=== PATIENT | female | born 1935 | race Caucasian/White ===

== ENCOUNTER 2016-12-04 20:04 | Observation (INO) ==
[2016-12-04] MEDS ORDERED: 0.9 % Sodium Chloride 1,000 ML IVC ONE ×2 (20:34→22:03)
--- NOTE | 2016-12-04 20:34 | Emergency Department Note ---
Disposition Clinical Impression: Type 2 diabetes mellitus with hyperglycemia, Neurologic abnormality, Sinusitis , Cerebrovascular disease, Dementia, Weakness, Frail elderly Disposition: Admitted As Inpatient Referrals: NO,PCP [Primary Care Provider] - Forms: Work/School Release, ED Satisfaction Letter General Adult HPI - General Chief complaint: ED General Medical Stated complaint: "Sent From for Hyperglycemia w/DM 2" Time Seen by Provider: 12/04/16 20:33 Source: patient Limitations: no limitations - History of Present Illness HPI Narrative: 81-year-old female diabetic brought in by relatives for concern regarding urinary symptoms, and uncontrolled right arm movements. The patient went to urgent care, she was sent to the ED for evaluation. The patient has had uncontrolled arm movements on the right for several days. Her just , she is feeling somewhat depressed. There is no history of headache or neck pain or weakness or numbness of the arms or legs no slurred speech or facial droop. The patient is known to be diabetic, her glucoses reportedly elevated. The patient describes burning and frequency with urination and low grade back aching bilaterally. There is no history of fall abdominal pain chest pain or shortness of breath no fevers. No difficulty moving the arms or legs independently. There is no history of kidney stones or bloody urine. Pain Scale: 0 - Related Data Home Medications Medication Instructions Recorded Confirmed Insulin Glargine,Hum.rec.anlog 25 unit SQ HS 12/04/16 12/04/16 [Lantus Solostar] Insulin LISPRO [Humalog Kwikpen] 0 unit SQ TIDWM 12/04/16 12/04/16 Allergies Allergy/AdvReac Type Severity Reaction Status Date / Time Penicillins [PCN] Allergy Anaphylaxis Verified 02/21/15 16:48 hydrocodone AdvReac Agitated Verified 01/24/16 09:37 All systems ED: reviewed and negative except as stated. 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 Absent: scleral icterus, conjunctival injection, miosis, mydriasis - ENT ENT exam: normal exam, normal oropharynx, mucous membranes moist, TM's normal bilaterally, normal external ear exam - Neck Neck exam: Present: normal inspection, full ROM, trachea midline Course Vital Signs Temperature 98.1 F 12/04/16 20:05 Pulse Rate 69 12/04/16 20:05 Respiratory Rate 18 12/04/16 20:05 Blood Pressure 162/73 12/04/16 20:05 O2 Sat by Pulse Oximetry 94 12/04/16 20:05 Temperature 98.1 F 12/04/16 20:05 Pulse Rate 68 12/04/16 21:00 Respiratory Rate 20 12/04/16 21:00 Blood Pressure 137/82 12/04/16 21:00 O2 Sat by Pulse Oximetry 96 12/04/16 21:00 Oxygen Delivery Oxygen Delivery Room Air Medical Decision Making - [facility] Narrative Medical decision making narrative: The patient is elderly, and apparently has uncontrolled blood sugar. She is type II on insulin but displays an element of acidosis suggestive of DKA. IV fluids and insulin were ordered. The patient's CT head shows some sinus opacification. The patient does not have sinus pain or drainage and does not evidence any black or pale areas in the nasal mucosa or mouth. The radiologist suggests a potential fungal infection in the sinus based on calcifications. Clinically the patient does not seem to have a presentation consistent with mucormycosis. There is no evidence of UTI. She does describe frequency or burning of urination however this may just be secondary to hyperglycemia. Given the patient's age, notably elevated blood sugar, a history of recurrent right upper extremity jerking, and an elevated beta hydroxybutyrate, dementia, recent of her resulting in an element of depression, and abnormal CT scan of the sinuses, I think it would be appropriate to admit the patient for further evaluation. I have discussed case with the hospitalist on-call who has accepted the patient to their care. I did review the case with Dr. Collado ENT, we both do not feel the patient's presentation is consistent with mucormycosis. A formal ENT consult was entered after discussion with the hospitalist. An initial dose of subcutaneous insulin was given, IV fluids were given, an IV insulin drip was initiated. - Lab Data Lab results reviewed: Yes I reviewed the patient's lab results. Result diagrams: 12/04/16 20:51 12/04/16 20:51 Lab Results 12/04/16 12/04/16 12/04/16 Range/Units 20:50 20:51 20:51 WBC 11.0 (4.3-11.1) K/mcL RBC 4.70 (3.82-4.97) M/mcL Hgb 14.3 (11.5-15.4) g/dL Hct 40.9 (35.3-44.9) % MCV 87.0 (83.0-100.0) fL MCH 30.4 (28.0-33.3) pg MCHC 35.0 (31.6-35.5) g/dL RDW 11.9 (11.5-14.5) % Plt Count 303 (140-400) K/mcL MPV 9.7 (9.4-12.4) fL Immature Gran % 0.7 (0-4) % Seg Neutrophils % 62.8 % Lymphocytes % 26.0 % Monocytes % 8.6 % Eosinophils % 1.4 % Basophils % 0.5 % Neutrophils # 6.9 (1.6-8.9) K/mcL Lymphocytes # 2.9 (0.6-4.6) K/mcL Monocytes # 0.9 (0.0-1.3) K/mcL Eosinophils # 0.2 (0.0-0.6) K/mcL Basophils # 0.1 (0.0-0.2) K/mcL Sodium 133 L (136-145) mEq/L Potassium 4.1 (3.5-4.5) mEq/L Chloride 96 L (98-109) mEq/L Carbon Dioxide 25 (19-29) mEq/L BUN 17 (7-20) mg/dL Creatinine 1.15 H (0.57-1.11) mg/dL Est GFR ( Amer) 55 L (> 60) Est GFR (Non-Af Amer) 45 L (> 60) BUN/Creatinine Ratio 15 (6-26) Glucose 564 H* (70-99) mg/dL POC Glucose 468 H* (58-89) Calculated Osmolality 303 H (280-300) Lactic Acid (0.5-2.2) mmol/L Calcium 9.8 (8.6-10.8) mg/dL Total Bilirubin (0.2-1.2) mg/dL Direct Bilirubin (0.0-0.5) mg/dL Indirect Bilirubin (0.0-1.2) mg/dL AST (5-34) Units/L ALT (0-55) Units/L Alkaline Phosphatase (38-126) Units/L Troponin I (0-0.03) ng/mL C-Reactive Protein (Less than 5) mg/L Serum Total Protein (6.0-8.3) g/dL Albumin (3.5-5.0) g/dL Globulin (2.4-3.5) g/dL Albumin/Globulin Ratio (1.1-2.2) Beta-Hydroxybutyric Acd (0.02-0.27) mmol/L Urine Color (Yellow) Urine Clarity (Clear) Urine pH (5.0-8.0) pH Units Ur Specific [place] (1.010-1.025) Urine Protein (Neg-Trace) mg/dL Urine Glucose (UA) (Normal) mg/dL Urine Ketones (Negative) mg/dL Urine Blood (Negative) Urine Nitrite (Negative) Urine Bilirubin (Negative) Urine Urobilinogen (Normal) mg/dL Ur Leukocyte Esterase (Negative) Ur Culture Indicated? (NO) 12/04/16 12/04/16 12/04/16 Range/Units 20:51 20:51 20:51 WBC (4.3-11.1) K/mcL RBC (3.82-4.97) M/mcL Hgb (11.5-15.4) g/dL Hct (35.3-44.9) % MCV (83.0-100.0) fL MCH (28.0-33.3) pg MCHC (31.6-35.5) g/dL RDW (11.5-14.5) % Plt Count (140-400) K/mcL MPV (9.4-12.4) fL Immature Gran % (0-4) % Seg Neutrophils % % Lymphocytes % % Monocytes % % Eosinophils % % Basophils % % Neutrophils # (1.6-8.9) K/mcL Lymphocytes # (0.6-4.6) K/mcL Monocytes # (0.0-1.3) K/mcL Eosinophils # (0.0-0.6) K/mcL Basophils # (0.0-0.2) K/mcL Sodium (136-145) mEq/L Potassium (3.5-4.5) mEq/L Chloride (98-109) mEq/L Carbon Dioxide (19-29) mEq/L BUN (7-20) mg/dL Creatinine (0.57-1.11) mg/dL Est GFR ( Amer) (> 60) Est GFR (Non-Af Amer) (> 60) BUN/Creatinine Ratio (6-26) Glucose (70-99) mg/dL POC Glucose (58-89) Calculated Osmolality (280-300) Lactic Acid 1.2 (0.5-2.2) mmol/L Calcium (8.6-10.8) mg/dL Total Bilirubin (0.2-1.2) mg/dL Direct Bilirubin (0.0-0.5) mg/dL Indirect Bilirubin (0.0-1.2) mg/dL AST (5-34) Units/L ALT (0-55) Units/L Alkaline Phosphatase (38-126) Units/L Troponin I 0.01 (0-0.03) ng/mL C-Reactive Protein 2 (Less than 5) mg/L Serum Total Protein (6.0-8.3) g/dL Albumin (3.5-5.0) g/dL Globulin (2.4-3.5) g/dL Albumin/Globulin Ratio (1.1-2.2) Beta-Hydroxybutyric Acd (0.02-0.27) mmol/L Urine Color (Yellow) Urine Clarity (Clear) Urine pH (5.0-8.0) pH Units Ur Specific [place] (1.010-1.025) Urine Protein (Neg-Trace) mg/dL Urine Glucose (UA) (Normal) mg/dL Urine Ketones (Negative) mg/dL Urine Blood (Negative) Urine Nitrite (Negative) Urine Bilirubin (Negative) Urine Urobilinogen (Normal) mg/dL Ur Leukocyte Esterase (Negative) Ur Culture Indicated? (NO) 05/23/17 05/23/17 05/23/17 Range/Units 20:51 20:51 21:31 WBC (4.3-11.1) K/mcL RBC (3.82-4.97) M/mcL Hgb (11.5-15.4) g/dL Hct (35.3-44.9) % MCV (83.0-100.0) fL MCH (28.0-33.3) pg MCHC (31.6-35.5) g/dL RDW (11.5-14.5) % Plt Count (140-400) K/mcL MPV (9.4-12.4) fL Immature Gran % (0-4) % Seg Neutrophils % % Lymphocytes % % Monocytes % % Eosinophils % % Basophils % % Neutrophils # (1.6-8.9) K/mcL Lymphocytes # (0.6-4.6) K/mcL Monocytes # (0.0-1.3) K/mcL Eosinophils # (0.0-0.6) K/mcL Basophils # (0.0-0.2) K/mcL Sodium (136-145) mEq/L Potassium (3.5-4.5) mEq/L Chloride (98-109) mEq/L Carbon Dioxide (19-29) mEq/L BUN (7-20) mg/dL Creatinine (0.57-1.11) mg/dL Est GFR ( Amer) (> 60) Est GFR (Non-Af Amer) (> 60) BUN/Creatinine Ratio (6-26) Glucose (70-99) mg/dL POC Glucose (58-89) Calculated Osmolality (280-300) Lactic Acid (0.5-2.2) mmol/L Calcium (8.6-10.8) mg/dL Total Bilirubin 0.4 (0.2-1.2) mg/dL Direct Bilirubin 0.2 (0.0-0.5) mg/dL Indirect Bilirubin 0.2 (0.0-1.2) mg/dL AST 13 (5-34) Units/L ALT 18 (0-55) Units/L Alkaline Phosphatase 109 (38-126) Units/L Troponin I (0-0.03) ng/mL C-Reactive Protein (Less than 5) mg/L Serum Total Protein 7.1 (6.0-8.3) g/dL Albumin 4.0 (3.5-5.0) g/dL Globulin 3.1 (2.4-3.5) g/dL Albumin/Globulin Ratio 1.3 (1.1-2.2) Beta-Hydroxybutyric Acd 1.08 H (0.02-0.27) mmol/L Urine Color Yellow (Yellow) Urine Clarity Clear (Clear) Urine pH 6.0 (5.0-8.0) pH Units Ur Specific [place] > 1.030 H (1.010-1.025) Urine Protein Negative (Neg-Trace) mg/dL Urine Glucose (UA) >=1000 H (Normal) mg/dL Urine Ketones 40 H (Negative) mg/dL Urine Blood Negative (Negative) Urine Nitrite Negative (Negative) Urine Bilirubin Negative (Negative) Urine Urobilinogen Normal (Normal) mg/dL Ur Leukocyte Esterase Negative (Negative) Ur Culture Indicated? NO (NO) - Radiology Data Radiology results reviewed: Yes I reviewed the patient's radiology results.
[2016-12-04 21:02] LABS: Basophils # 0.1 K/mcL (0.0-0.2); Basophils % 0.5 %; Eosinophils # 0.2 K/mcL (0.0-0.6); Eosinophils % 1.4 %; Hematocrit 40.9 % (35.3-44.9); Hemoglobin 14.3 g/dL (11.5-15.4); Immature Granulocytes % 0.7 % (0-4); Lymphocytes # 2.9 K/mcL (0.6-4.6); Mean Corpuscular Hemoglobin 30.4 pg (28.0-33.3); Mean Platelet Volume 9.7 fL (9.4-12.4); Monocytes # 0.9 K/mcL (0.0-1.3); Monocytes % 8.6 %; Neutrophils # 6.9 K/mcL (1.6-8.9); Platelet Count 303 K/mcL (140-400); Red Cell Distribution Width 11.9 % (11.5-14.5); Segmented Neutrophils % 62.8 %
[2016-12-04 21:17] LABS: Calcium 9.8 mg/dL (8.6-10.8); Potassium 4.1 mEq/L (3.5-4.5)
[2016-12-04 21:18] LABS: Albumin/Globulin Ratio 1.3 (1.1-2.2); Bilirubin,Direct 0.2 mg/dL (0.0-0.5); Bilirubin,Indirect 0.2 mg/dL (0.0-1.2); Bilirubin,Total 0.4 mg/dL (0.2-1.2); Globulin 3.1 g/dL (2.4-3.5); Total Protein 7.1 g/dL (6.0-8.3)
[2016-12-04] MEDS ORDERED: Insulin Regular, Human 100 UNIT/ML SQ ONE (21:48)
[2016-12-04 22:01] LABS: Bilirubin,Urine Negative (Negative); Blood,Urine Negative (Negative); Clarity,Urine Clear (Clear); Color,Urine Yellow (Yellow); Glucose,Urine (UA) >=1000 mg/dL (Normal); Ketones,Urine 40 mg/dL (Negative); Leukocyte Esterase,Urine Negative (Negative); Nitrite,Urine Negative (Negative); Protein,Urine Negative (Neg-Trace); Specific Gravity,Urine > 1.030 (1.010-1.025); Urobilinogen,Urine Normal (Normal)
[2016-12-04] MEDS ORDERED: *HR* Dextrose 50 % in Water (Syg) 50 ML SYRINGE IVP PRN (22:04)
[2016-12-04] MEDS ORDERED: Insulin Human Regular 100 UNIT in 0.9 % Sodium Chloride 100 ML IVC SCH (22:15)
[2016-12-05] MEDS ORDERED: Naloxone 0.4 MG/ML INJ IVP PRN (00:58)
[2016-12-05] MEDS ORDERED: Ondansetron 4 MG/2 ML VIAL IVP PRN (00:58)
--- NOTE | 2016-12-05 01:05 | Internal Med History&Physical ---
<Esau Padron - Last Filed: 12/05/16 01:10> Date of Encounter: 12/05/16 Time of Encounter: 01:01 Assessment and Plan (1) Hyperglycemia due to type 2 diabetes mellitus Current visit: Yes Status: Acute Blood sugar was 564 on presentation. Patient appears asymptomatic. Patient does use insulin at home. Most recent A1c was in May 2016 which showed an A1c of 13.9. Given the patient's underlying dementia I am doubtful that she is able to take her insulin regularly. We will recheck A1c in the morning. Patient was placed on an insulin drip for improved glycemic control. We will continue to monitor and restart subcutaneous insulin when sugars improved. Patients anion gap is normal, patient is not in DKA. We will fluid hydrate. 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 Concern for acute infection is extremely low as the patient does not have white count, fever, drainage, or any other signs of infection. Patient is nontoxic-appearing. Given this we will hold off on antibiotics at this time. ENT has been consulted from the emergency department Qualifiers: Sinusitis location: sphenoidal Chronicity: chronic Qualified Code(s): J32.3 - Chronic sphenoidal sinusitis (3) Azotemia Current visit: No Status: Resolved Creatinine slightly elevated 1.15, patient appears to have normal kidney function otherwise. Likely related to dehydration in setting of hyperglycemia. Will fluid hydrate and recheck in the morning. Patient has good urine output. (4) Dementia Current visit: No Status: Acute Patient states that she lives along but then states that somebody lives with her so her living situation is unclear. No family was present to discuss this with. We will place social work consult Qualifiers: Dementia type: unspecified type Dementia behavioral disturbance: without behavioral disturbance Qualified Code(s): F03.90 - Unspecified dementia without behavioral disturbance (5) DVT prophylaxis Current visit: Yes Status: Acute Heparin 5000 units subcutaneous twice a day. Internal Medicine - H&P: HPI Chief complaint: hyperglycemia Admitted From: Emergency Dept Plans for Post Hospital Care: Home History of present illness: Ms. Cisse is a 81 year old female with history of diabetes and dementia who presents with elevated blood sugar. Patient is pleasantly confused so history is difficult to obtain. Patient states she was brought into the emergency department due to concern for her living alone however then the patient stated that she lives with her 's friend. Patient states she has no other complaints at this time. She states she is diabetic and checks her blood sugars and they normally run in the 70s however when I told her blood sugar was high at this time she said that that happens sometimes. Patient has no other complaints at this time. Past Med Surg Social Fam HX - Past Medical History Medical history: COPD, diabetes, hyperlipidemia, hypertension, other Psychiatric history: anxiety - Past Surgical History Surgical History: cholecystectomy, hysterectomy, orthopedic, other (Lumbar fusion and subsequent removal of hardware), GHANSHYAM/BSO, other (Cystoscopy, cardiac catheterization) - Social History Smoking Status: Never smoker Smokeless Tobacco Status: No Alcohol use: none Drug use: none - Additional Family History Additional family history: Unobtainable due to baseline dementia. Internal Medicine - H&P: Meds Insulin Glargine,Hum.rec.anlog [Lantus Solostar] 25 unit SQ HS 12/04/16 [History ] Insulin LISPRO [Humalog Kwikpen] 0 unit SQ TIDWM 12/04/16 [History] Allergies Penicillins [PCN] Allergy (Verified 02/21/15 16:48) Anaphylaxis hydrocodone Adverse Reaction (Verified 01/24/16 09:37) Agitated ROS unobtainable: due to mental status All Systems PM: A 10-system review of systems was performed and is negative for pertinent findings except as documented above in the HPI. - Constitutional Vitals: Temp Pulse Resp BP Pulse Ox 98.1 F 72 16 163/78 96 12/05/16 00:53 12/05/16 00:53 12/05/16 00:53 12/05/16 00:53 12/05/16 00:53 General appearance: Present: A&O X 1 (To person only), pleasant, no acute distress - Head Head exam: Present: atraumatic, normal inspection, normocephalic - Eye Eye exam: Present: EOMI, PERRL - ENT ENT exam: Present: mucous membranes moist Additional comments: Nares are patent with no erythema, drainage, or lesions noted - Expanded ENT Exam Mouth exam: Present: normal external inspection Throat exam: Present: normal inspection. Absent: tonsillar erythema - Respiratory Respiratory exam: Present: CTAB. Absent: rales, rhonchi, wheezes - Cardiovascular Cardiovascular exam: Present: RRR. Absent: gallop, rubs, systolic murmur - GI/Abdominal GI/Abdominal exam: Present: normal bowel sounds, soft. Absent: distended, tenderness - Extremities Exam Extremities exam: Present: warm. Absent: pedal edema, tenderness - Neurological Exam Neurological exam: Present: alert, altered, CN II-XII intact, no focal deficits. Absent: oriented X3 - Psychiatric Psychiatric exam: Present: depressed - Skin Skin exam: Present: dry, intact, warm Internal Med - H&P Results - Labs CBC & Chem 7: 12/04/16 20:51 12/04/16 20:51 <Valerie Carpio - Last Filed: 12/05/16 06:40> Date of Encounter: 12/05/16 Internal Medicine - H&P: HPI History of present illness: Ms. Cisse is a 81 year old female All Systems PM: A 10-system review of systems was performed and is negative for pertinent findings except as documented above in the HPI. - Constitutional Vitals: Temp Pulse Resp BP Pulse Ox 97.6 F 69 16 133/70 93 12/05/16 03:06 12/05/16 03:06 12/05/16 03:06 12/05/16 03:06 12/05/16 03:06 Internal Med - H&P Results - Labs CBC & Chem 7: 12/04/16 20:51 12/04/16 20:51 - Attending Attestation I performed history and physical examination of the patient and discussed management with the Resident. I reviewed the Residents note and agree with documented findings and plan of care. 81 Y/F with history of diabetes and ? dementia who is admitted to the hospitalist service, from the ER for elevated blood glucose. She is confused and is not able to give details well. Per the signout from the ER, Her recently. Her family was concerned about movements of the right arm (Which was not seen in the ER) and elevated glucose. O/E: Not in acute distress. Lungs clear to auscultation. Cardiovascular regular rate and rhythm. Labs showed serum glucose of 464, creatinine 1.15, serum sodium 133, lactic acid 1.2. Urinalysis is negative for leucocyte esterase and nitrites. CT head reported no acute intracranial abnormality. Mild chronic white matter microvascular ischemic changes. Complete opacification of the right sphenoid sinus with internal calcifications suggesting fungal infection. CXR reported no acute process. EKG personally reviewed by me shows sinus rhythm. QTC is 430 ms A/P: Hyperosmolar hyperglycemic state: Pt was given IV fluids and was started on IV insulin in the ER. Continue IV insulin per the protocol. Check A1C. CT Head report is concerning for Sinusitis (fungal) ENT consulted from the ER. Monitor Social service consult re: placement
[2016-12-05] MEDS: 0.9 % Sodium Chloride 1,000 ML IVC SCH ×2 (02:17→18:35)
[2016-12-05] MEDS: *HR* Heparin 5,000 UNIT/ML VIAL SQ SCH ×2 (05:32→18:36)
[2016-12-05 07:24] LABS: Basophils % 0.4 %; Eosinophils # 0.2 K/mcL (0.0-0.6); Hematocrit 37.4 % (35.3-44.9); Immature Granulocytes % 0.4 % (0-4); Lymphocytes # 3.5 K/mcL (0.6-4.6); Lymphocytes % 34.7 %; Mean Corpuscular HGB Conc 34.8 g/dL (31.6-35.5); Mean Corpuscular Hemoglobin 30.7 pg (28.0-33.3); Mean Corpuscular Volume 88.4 fL (83.0-100.0); Monocytes % 9.7 %; Neutrophils # 5.3 K/mcL (1.6-8.9); Platelet Count 251 K/mcL (140-400); Red Blood Count 4.23 M/mcL (3.82-4.97); Red Cell Distribution Width 12.1 % (11.5-14.5); Segmented Neutrophils % 52.8 %
[2016-12-05 07:38] LABS: BUN/Creatinine Ratio 14 (6-26); Blood Urea Nitrogen 12 mg/dL (7-20); Calcium 8.9 mg/dL (8.6-10.8); Carbon Dioxide 22 mEq/L (19-29); Chloride 107 mEq/L (98-109); Glucose 277 mg/dL (70-99); Magnesium 1.5 mg/dL (1.6-2.6); Osmolality,Calculated 300 (280-300); Potassium 3.8 mEq/L (3.5-4.5); eGFR For African Americans > 60 (> 60); eGFR For Non-African Americans > 60 (> 60)
[2016-12-05 07:40] LABS: Sodium 140 mEq/L (136-145)
[2016-12-05] MEDS ORDERED: Magnesium Sulfate 1 GM in D5% in Water 100 ML IVPB ONE (08:14)
[2016-12-05 08:23] LABS: Hemoglobin A1C 13.7 %
[2016-12-05] MEDS ORDERED: *HR* Dextrose 50 % in Water (Syg) 50 ML SYRINGE IVP PRN (09:00)
[2016-12-05] MEDS ORDERED: D5% in Water 1,000 ML IVC PRN (09:00)
[2016-12-05] MEDS ORDERED: Dextrose Gel 15 GM PO PRN ×2 (09:00)
[2016-12-05] MEDS ORDERED: Insulin LISPRO 300 UNITS/3 ML VIAL SQ ONE (09:04)
[2016-12-05] MEDS: Insulin LISPRO 300 UNITS/3 ML VIAL SQ SCH ×4 (09:08→20:27)
[2016-12-05] MEDS: Insulin DETEMIR 100 UNIT/ML X5UNITS SQ SCH (10:02)
--- NOTE | 2016-12-05 11:01 | Electrocardiograph Report ---
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
--- NOTE | 2016-12-05 11:05 | Event Note ---
Date of Encounter: 12/05/16 Time of Encounter: 11:03 Patient is an 81-year-old female with medical history of diabetes and dementia who was admitted for hyperglycemia. Patient was also noted to have sinusitis for which ENT was consulted by the ER physician. Patient's hyperglycemia is improved and she is restarted on her home dose of Levemir. She is started on sliding scale insulin algorithm. Her blood glucose will be closely monitored. director outpatient services are consulted for discharge planning as patient reports of living alone. She is currently hemodynamically stable and denies any discomfort at this time.
[2016-12-05] MEDS ORDERED: Haloperidol Lactate 5 MG/ML VIAL IVP ONE (15:03)
[2016-12-06 05:07] LABS: Basophils % 0.4 %; Eosinophils # 0.2 K/mcL (0.0-0.6); Eosinophils % 2.3 %; Hematocrit 36.7 % (35.3-44.9); Hemoglobin 12.5 g/dL (11.5-15.4); Immature Granulocytes % 0.7 % (0-4); Lymphocytes # 3.4 K/mcL (0.6-4.6); Lymphocytes % 37.7 %; Mean Corpuscular HGB Conc 34.1 g/dL (31.6-35.5); Mean Corpuscular Hemoglobin 30.6 pg (28.0-33.3); Mean Corpuscular Volume 89.7 fL (83.0-100.0); Mean Platelet Volume 9.9 fL (9.4-12.4); Monocytes # 0.8 K/mcL (0.0-1.3); Monocytes % 8.9 %; Neutrophils # 4.5 K/mcL (1.6-8.9); Platelet Count 242 K/mcL (140-400); Red Blood Count 4.09 M/mcL (3.82-4.97); Red Cell Distribution Width 12.1 % (11.5-14.5)
[2016-12-06 05:21] LABS: BUN/Creatinine Ratio 22 (6-26); Blood Urea Nitrogen 17 mg/dL (7-20); Calcium 8.7 mg/dL (8.6-10.8); Carbon Dioxide 22 mEq/L (19-29); Chloride 112 mEq/L (98-109); Glucose 195 mg/dL (70-99); Magnesium 1.6 mg/dL (1.6-2.6); Osmolality,Calculated 301 (280-300); Potassium 3.8 mEq/L (3.5-4.5); Sodium 142 mEq/L (136-145); eGFR For African Americans > 60 (> 60); eGFR For Non-African Americans > 60 (> 60)
[2016-12-06] MEDS: *HR* Heparin 5,000 UNIT/ML VIAL SQ SCH ×2 (05:34→18:14)
[2016-12-06] MEDS: 0.9 % Sodium Chloride 1,000 ML IVC SCH ×2 (05:34→19:15)
[2016-12-06] MEDS: Insulin LISPRO 300 UNITS/3 ML VIAL SQ SCH ×6 (08:50→21:13)
[2016-12-06] MEDS: Insulin DETEMIR 100 UNIT/ML X5UNITS SQ SCH ×2 (08:50→21:13)
--- NOTE | 2016-12-06 10:59 | Internal Med Progress Note ---
Date of Encounter: 12/06/16 Time of Encounter: 10:57 - Subjective Interval history: Patient seen and examined at bedside. As per family, her mental status waxes and wanes and at baseline she is alert to self. She has been confused throughout the evening and earlier this morning. at this time she is oriented to self and place but does not recall much of the conversation from yesterday, which appears to be consistent with her baseline behavior as per family. She will be living with her niece after her discharge. 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 Collado who reported that patient's current CT head findings are chronic and are consistent with her prior reports, and since the patient is asymptomatic, she would not recommend any acute intervention at this time. Qualifiers: Sinusitis location: sphenoidal Chronicity: chronic Qualified Code(s): J32.3 - Chronic sphenoidal sinusitis (3) Azotemia Current visit: No Status: Resolved resolved Renal function at baseline continue to monitor (4) Dementia Current visit: No Status: Acute Pt will be living with family after discharge Started Seroquel for agitation. pt at baseline mental status Qualifiers: Dementia type: unspecified type Dementia behavioral disturbance: without behavioral disturbance Qualified Code(s): F03.90 - Unspecified dementia without behavioral disturbance (5) DVT prophylaxis Current visit: Yes Status: Acute Heparin 5000 units subcutaneous twice a day. - Constitutional Vitals: Temp Pulse Resp BP Pulse Ox 98.2 F 81 18 136/63 95 12/06/16 04:24 12/06/16 04:24 12/06/16 04:24 12/06/16 04:24 12/06/16 04:24 General appearance: Present: A&O X 2, pleasant, no acute distress - Head Head exam: Present: atraumatic, normocephalic - Eye Eye exam: Present: normal appearance, conjuntiva pink, sclera anicteric - Respiratory Respiratory exam: Present: CTAB. Absent: accessory muscle use, rales, rhonchi, wheezes - Cardiovascular Cardiovascular exam: Present: RRR, +S1, +S2. Absent: diastolic murmur, gallop, rubs, systolic murmur - GI/Abdominal GI/Abdominal exam: Present: normal bowel sounds, soft, no peritoneal signs. Absent: distended, tenderness - Extremities Exam Extremities exam: Present: warm, radial pulses palpable and symetrical. Absent : calf tenderness, cyanotic, pedal edema - Neurological Exam Neurological exam: Present: alert - Psychiatric Psychiatric exam: Present: normal affect, normal mood Internal Medicine: Result - Labs CBC & Chem 7: 12/06/16 04:02 12/06/16 04:02 Labs: Short CBC 12/06/16 Range/Units 04:02 WBC 8.9 (4.3-11.1) K/mcL Hgb 12.5 (11.5-15.4) g/dL Hct 36.7 (35.3-44.9) % Plt Count 242 (140-400) K/mcL Neutrophils # 4.5 (1.6-8.9) K/mcL BMP 12/06/16 04:02 Sodium 142 Potassium 3.8 Chloride 112 H Carbon Dioxide 22 BUN 17 Creatinine 0.77 Glucose 195 H Calcium 8.7 Consult Discharge Plan - Plan Referrals: NO,PCP [Primary Care Provider] - (patient is confused at this time. Unable to ask about who her PCP is)
[2016-12-07] MEDS ORDERED: Ibuprofen 400 MG TABLET PO ONE (00:49)
[2016-12-07 05:10] LABS: Basophils % 0.5 %; Eosinophils # 0.2 K/mcL (0.0-0.6); Eosinophils % 2.3 %; Hematocrit 35.6 % (35.3-44.9); Hemoglobin 12.3 g/dL (11.5-15.4); Immature Granulocytes % 0.3 % (0-4); Lymphocytes # 3.1 K/mcL (0.6-4.6); Mean Corpuscular HGB Conc 34.6 g/dL (31.6-35.5); Mean Corpuscular Hemoglobin 30.9 pg (28.0-33.3); Mean Corpuscular Volume 89.4 fL (83.0-100.0); Mean Platelet Volume 9.6 fL (9.4-12.4); Monocytes # 0.9 K/mcL (0.0-1.3); Monocytes % 9.9 %; Neutrophils # 4.6 K/mcL (1.6-8.9); Platelet Count 230 K/mcL (140-400); Red Blood Count 3.98 M/mcL (3.82-4.97); Red Cell Distribution Width 12.3 % (11.5-14.5)
[2016-12-07 05:26] LABS: BUN/Creatinine Ratio 19 (6-26); Blood Urea Nitrogen 13 mg/dL (7-20); Calcium 8.6 mg/dL (8.6-10.8); Carbon Dioxide 23 mEq/L (19-29); Chloride 114 mEq/L (98-109); Glucose 129 mg/dL (70-99); Magnesium 1.6 mg/dL (1.6-2.6); Osmolality,Calculated 296 (280-300); Phosphorous 3.5 mg/dL (2.3-4.7); Potassium 3.2 mEq/L (3.5-4.5); Sodium 142 mEq/L (136-145); eGFR For African Americans > 60 (> 60); eGFR For Non-African Americans > 60 (> 60)
[2016-12-07] MEDS: *HR* Heparin 5,000 UNIT/ML VIAL SQ SCH (06:43)
[2016-12-07] MEDS: Insulin LISPRO 300 UNITS/3 ML VIAL SQ SCH ×4 (08:19→12:12)
--- NOTE | 2016-12-07 09:10 | Discharge Summary ---
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 Qualified Code( s): E11.65 - Type 2 diabetes mellitus with hyperglycemia; Z79.4 - nursing home ( current) use of insulin - Discharge Medications Prescriptions: Insulin Glargine,Hum.rec.anlog [Lantus Solostar] 20 unit SQ BID #5 insuln.pen Quetiapine Fumarate [Seroquel] 25 mg PO HS #30 tablet Home Medications: Insulin LISPRO [Humalog Kwikpen U-200] 0 unit SQ TIDWM 12/04/16 [History] Insulin Glargine,Hum.rec.anlog [Lantus Solostar] 20 unit SQ BID #5 insuln.pen [Rx] Quetiapine Fumarate [Seroquel] 25 mg PO HS #30 tablet 12/07/16 [Rx] Allergies/Adverse Reactions: Allergies Penicillins [PCN] Allergy (Verified 02/21/15 16:48) Anaphylaxis hydrocodone Adverse Reaction (Verified 01/24/16 09:37) Agitated Date of admission: 12/04/16 23:05 Primary care physician: PCP NO Consults: 12/05/16 01:50 Consult to Lever Miller [CONS] Routine Reason for SW Consult: D'C NEEDS 12/05/16 10:24 Consult to Physical Therapy [CONS] Routine Comment: Evaluate, develop and implement POC Reason for Consult: evaluation Discharging clinician: Shasta Swift Anticipated date of discharge: 12/07/16 - Patient Status Disposition: Home, Self-Care Condition: Good Functional capacity at discharge: independent ambulation Overall status at discharge: patient is back to baseline - Discharge Instructions Follow Up With: NO,PCP [Primary Care Provider] - (patient is confused at this time. Unable to ask about who her PCP is) Additional Instructions: Please follow up with your primary care physician within one week after your discharge from the hospital. Please ask for a neurology referral from your Primary care physician in regards to starting any treatment plan for worsening dementia. Your home dose of Lantus has been increased to 20units SQ twice a day. Please take this medication as prescribed. Please continue Humalog sliding scale. Closely monitor your fingerstick glucose. Check fingerstick glucose four times a day (Fasting, Premeal, two hours after a meal, before bedtime). Please take these glucose logs to your primary care physician and your insulin regimen will be adjusted according to these readings. Seroquel 25mg at bedtime has been added to your home medications for severe agitation. Resume all other medications as prescribed by your primary care physician. - Diet and Activity Activity: resume usual activities as tolerated Diet: diabetic diet Hospital course: Ms. Cisse is a 81 year old female with PMH of DM, dementia who was admitted for management of hyperglycemia. Pt is noted to have uncontrolled DM with worsening dementia. She was started on insulin therapy to which she responded appropriately. Pt's memory loss has made it difficult for her to take care of herself and recently has lost her . Her daughter/niece (Lee Ann Guzman [phone]) will be taking care of her moving forward. Pt will be living with her after her discharge. Pt will be moving to [place] after discharge. At this time her mental status is at baseline with BG within acceptable range. She is to be discharged to home with follow up with primary care physician. Patient's SHIRLEYK Lee Ann Guzman was informed of the discharge plan, she demonstrates understanding and agrees with the discharge care and plan. - Time Spent with Patient Total time spent providing and/or coordinating discharge services: Greater than 30 minutes - Constitutional Vitals: Temp Pulse Resp BP Pulse Ox 98.8 F 93 18 163/81 97 12/06/16 22:35 12/06/16 22:35 12/06/16 22:35 12/06/16 22:35 12/06/16 22:35 General appearance: Present: A&O X 2, no acute distress - Head Head exam: Present: atraumatic, normocephalic - Respiratory Respiratory exam: Present: CTAB. Absent: accessory muscle use, rales, rhonchi, wheezes - Cardiovascular Cardiovascular exam: Present: RRR, +S1, +S2. Absent: diastolic murmur, gallop, rubs, systolic murmur - GI/Abdominal GI/Abdominal exam: Present: normal bowel sounds, soft, no peritoneal signs. Absent: distended, tenderness - Extremities Exam Extremities exam: Present: warm, radial pulses palpable and symetrical. Absent : calf tenderness, cyanotic, pedal edema - Neurological Exam Neurological exam: Present: alert - Psychiatric Psychiatric exam: Present: normal affect, normal mood
[2016-12-07] MEDS ORDERED: Acetaminophen 325 MG TABLET PO ONE ×2 (09:32→10:00)
[2016-12-07] MEDS: Insulin DETEMIR 100 UNIT/ML X5UNITS SQ SCH (09:45)
[2016-12-07 10:54] VITALS: BP 158/78
== END 2016-12-07 13:56 | disposition home or self-care (01) ==
LOC: EMEROO 20:04 → 2NNU 20:04 → 2ANU 12-05 00:12
PROVIDERS: ADMIT Internal Medicine; ATTEND Internal Medicine